=== PATIENT | male | born 1990 | race African-American/Black ===

== ENCOUNTER 2020-09-10 22:15 | Emergency (ER) | payer SELFPAY ==
[~2020-09-10] VITALS: Ht 180.3 cm; Wt 72.6 kg
[2020-09-10 22:35] VITALS: BP_SYST 128
[2020-09-10 23:31] VITALS: BP_SYST 128
== END 2020-09-10 23:31 | disposition home or self-care (01) ==
LOC: SED 22:15
DX: T16.1XXA Foreign body in right ear, initial encounter (principal); X58.XXXA Exposure to other specified factors, initial encounter; Y93.89 Activity, other specified; Y92.89 Other specified places as the place of occurrence of the external cause; Y99.8 Other external cause status
CPT/HCPCS: 99284